=== PATIENT | male | born 1960 | race Caucasian/White ===

== ENCOUNTER 2016-05-12 03:57 | Observation (INO) | payer OTHER ==
[2016-05-12] MEDS ORDERED: NITROGLYCERIN OINT 1 INCH/GM PACKET TOPICAL STA (04:11)
[2016-05-12] MEDS ORDERED: ASPIRIN 81 MG CHEW PO STA (04:11)
--- NOTE | 2016-05-12 04:15 | ED ---
Chest Pain HPI - General Chief Complaint: Chest Pain Stated Complaint: chest pain Time Seen by Provider: 05/12/16 04:05 Source: patient, RN notes reviewed Mode of arrival: ambulatory Limitations: no limitations - History of Present Illness Initial Comments: This is a 55-year-old male with no significant past medical history. Patient states she does have some family history of heart disease. Patient comes in today because he woke up and had some numbness down his left arm and then he get up went to the bathroom he started feeling lightheaded and had some chest heaviness being short of breath and then thought he was going to pass out. Patient went and told his that she should call an ambulance and then he started feeling better so he decided to drive into the emergency department. On the way in he had a repeat of those symptoms and again to a passout and again was telling his called EMS unit on the right in. Patient denies any recent fever chills or cough. Patient denies any headache patient denies numbness weakness. Patient denies any recent injury or trauma. Patient states currently he is only having very minimal heaviness in his chest - Related Data Allergies Allergy/AdvReac Type Severity Reaction Status Date / Time No Known Allergies Allergy Verified 05/12/16 04:27 Review of Systems ROS Statement: Those systems with pertinent positive or pertinent negative responses have been documented in the HPI. ROS Other: All systems not noted in ROS Statement are negative. Past Medical History Additional Past Medical History / Comment(s): menners History of Any Multi-Drug Resistant Organisms: None Reported Additional Past Surgical History / Comment(s): orthopedic surgery Past Psychological History: No Psychological Hx Reported Smoking Status: Former smoker Past Alcohol Use History: Occasional Past Drug Use History: None Reported General Exam - General Exam Comments Initial Comments: GENERAL: Patient is well-developed and well-nourished. Patient is nontoxic and well- hydrated and is in mild distress. ENT: Neck is soft and supple. No significant lymphadenopathy is noted. Oropharynx is clear. Moist mucous membranes. Neck has full range of motion without eliciting any pain. EYES: The sclera were anicteric and conjunctiva were pink and moist. Extraocular movements were intact and pupils were equal round and reactive to light. Eyelids were unremarkable. PULMONARY: Unlabored respirations. Good breath sounds bilaterally. No audible rales rhonchi or wheezing was noted. CARDIOVASCULAR: There is a regular rate and rhythm without any murmurs gallops or rubs. ABDOMEN: Soft and nontender with normal bowel sounds. No palpable organomegaly was noted. There is no palpable pulsatile mass. SKIN: Skin is clear with no lesions or rashes and otherwise unremarkable. NEUROLOGIC: Patient is alert and oriented x3. Cranial nerves II through XII are grossly intact. Motor and sensory are also intact. Normal speech, volume and content. Symmetrical smile. MUSCULOSKELETAL: Normal extremities with adequate strength and full range of motion. No lower extremity swelling or edema. No calf tenderness. LYMPHATICS: No significant lymphadenopathy is noted PSYCHIATRIC: Normal psychiatric evaluation. Normal interpersonal interactions appears functionally intact in deals appropriately with others. No signs of depression. No signs of anxiety. Limitations: no limitations Course Vital Signs 05/12/16 04:00 Temperature 97.2 F L Pulse Rate 88 Respiratory 20 Rate Blood Pressure 168/92 O2 Sat by Pulse 98 Oximetry Chest Pain MDM - MDM EKG shows normal sinus rhythm at 75 bpm NV interval 260 QRS is 90 QT interval 386 QTC is 431. Patient's EKG shows no ST segment elevation or depression or T wave noted. Chest x-ray shows no acute abnormality. Disposition Clinical Impression: Chest pain, Palpitations, Near syncope Disposition: ADMITTED IP TO THIS HOSP Time of Disposition: 05:15
[2016-05-12 04:33] LABS: Basophils % (A) 1 %; CH 30.8; CHCM 33.6; Eosinophils # (A) 0.3 k/uL (0-0.7); Eosinophils % (A) 7 %; HDW 2.15; HGB 15.3 gm/dL (13.0-17.5); Luc # (Auto) 0.22; Luc % (Auto) 4; Lymphocytes # (A) 1.8 k/uL (1.0-4.8); Lymphocytes % (A) 36 %; MCH 29.9 pg (25.0-35.0); MCHC 32.5 g/dL (31.0-37.0); Mean Platelet Volume 8.5; Monocytes # (A) 0.4 k/uL (0-1.0); Monocytes % (A) 8 %; Neutrophils # (A) 2.3 k/uL (1.3-7.7); Neutrophils % (A) 45 %; RBC 5.11 m/uL (4.30-5.90); RDW 12.6 % (11.5-15.5); WBC 5.2 k/uL (3.8-10.6); WBC (Perox) 5.25
--- NOTE | 2016-05-12 04:48 | XR ---
EXAM: XR Chest, 2 Views. CLINICAL HISTORY: Reason: Chest Pain TECHNIQUE: Frontal and lateral views of the chest. COMPARISON: No relevant prior studies available. FINDINGS: Lungs: Unremarkable. No consolidation. Pleural spaces: Unremarkable. No pneumothorax. Heart: Unremarkable. No cardiomegaly. Mediastinum: Unremarkable. Bones: Multilevel degenerative changes throughout. The distal left clavicle is foreshortened, may be related to prior injury or surgery. No acute fracture. Tubes and lines: Several EKG wires and leads overlie the chest. IMPRESSION: No acute findings.
[2016-05-12 04:50] LABS: ALT 48 U/L (21-72); AST 28 U/L (17-59); Alkaline Phosphatase 63 U/L (38-126); Anion Gap 11 mmol/L; Blood Urea Nitrogen 17 mg/dL (9-20); Calcium 9.4 mg/dL (8.4-10.2); Carbon Dioxide 23 mmol/L (22-30); Chloride 108 mmol/L (98-107); Glucose 105 mg/dL (74-99); Magnesium 1.9 mg/dL (1.6-2.3); Non-African American GFR(MDRD) >60 (>60 ml/min/1.73 sqM); Potassium 3.7 mmol/L (3.5-5.1); Sodium 142 mmol/L (137-145); Total Bilirubin 0.7 mg/dL (0.2-1.3)
[2016-05-12 04:54] LABS: Creatine Kinase 193 U/L (55-170)
[2016-05-12 05:06] LABS: Creatine Kinase MB 1.4 ng/mL (0.0-2.4); Troponin I <0.012 ng/mL (0.000-0.034)
[2016-05-12] MEDS ORDERED: NITROGLYCERIN SL TABS 0.4 MG TAB SUBLINGUAL PRN (05:19)
[2016-05-12 06:21] LABS: INR 1.1 (<1.1); Partial Thromboplastin Time 24.8 sec (22.0-30.0); Prothrombin Time 11.4 sec (9.0-12.0)
[2016-05-12] MEDS: NITROGLYCERIN OINT 1 INCH/GM PACKET TOPICAL SCH ×3 (07:24→19:59)
[2016-05-12 10:59] LABS: Creatine Kinase 162 U/L (55-170)
[2016-05-12 11:11] LABS: Troponin I <0.012 ng/mL (0.000-0.034)
--- NOTE | 2016-05-12 12:05 | CONS ---
DATE OF CONSULTATION: Mr. Ariza is a 55-year-old gentleman who is seen for cardiac evaluation. The patient's electronic medical records and laboratories are reviewed. Patient woke up from sleep and he felt that there was a numbness in his left arm. He subsequently tried to get up; had a bowel movement and he felt dizzy and felt like he may pass out. He was slightly diaphoretic. Patient called for the ambulance but subsequently he felt better, so he came by car to the emergency room. On the way to emergency room, he did have another episode of dizziness. He denied any nausea or vomiting. This patient denies any history suggestive of angina. There is no history of diabetes or hypertension. Patient is a former smoker. 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 Review of systems is otherwise unremarkable. Physical examination at present reveals blood pressure 116/76 mmHg. In the emergency room, patient's blood pressure was 168/92 mmHg, heart rate is 80 per minute, oxygen saturation is 97. Head/ENT examination is negative. Neck is supple. There is no increase in jugular venous pressure. Both the carotid pulses are felt. There is no bruit. Chest is symmetrical. HEART: The PMI is not felt. First and second heart sounds are normal. There is no evidence of any murmur. Lungs are clinically clear to auscultation and percussion. ABDOMEN: Soft. Liver and spleen are not enlarged. Bowel sounds are heard. EXTREMITIES: Peripheral pulsations are 2+. There is no evidence of any edema or phlebitis. Neurological examination is grossly normal. EKG shows a normal sinus rhythm without any acute ischemic changes. Two sets of troponins are normal. No dysrhythmias are noted so far. FINAL IMPRESSION: This patient had an episode of dizziness, lightheadedness or symptoms suggestive of near syncope, which appears to be most likely secondary to vasovagal episode. No arrhythmias are noted. EKG is normal. PLAN: We will treat the patient with intravenous fluids. Echo and Doppler study will be done and we will monitor the patient for 24 hours. If the patient remains normal, he can be discharged home and we will schedule him for a stress test as an outpatient.
[2016-05-12] MEDS: SODIUM CHLORIDE 0.9% 1,000 ML IV SCH (13:57)
--- NOTE | 2016-05-12 15:59 | ECHOF ---
Referral Reason:palpitation MEASUREMENTS -------- HEIGHT: 175.3 cm WEIGHT: 99.8 kg BP: 123/71 RVIDd: 2.9 cm (< 3.3) IVSd: 0.9 cm (0.6 - 1.1) LVIDd: 4.6 cm (3.9 - 5.3) LVPWd: 1.1 cm (0.6 - 1.1) IVSs: 2.0 cm LVIDs: 2.8 cm LVPWs: 2.0 cm LA Diam: 3.6 cm (2.7 - 3.8) LAESV Index (A-L): 19.50 ml/m Ao Diam: 3.4 cm (2.0 - 3.7) AV Cusp: 2.0 cm (1.5 - 2.6) LA Diam: 3.6 cm (2.7 - 3.8) MV EXCURSION: 12.842 mm (> 18.000) MV EF SLOPE: 42 mm/s (70 - 150) EPSS: 0.4 cm MV E Jalen: 0.46 m/s MV DecT: 191 ms MV A Ajlen: 0.52 m/s MV E/A Ratio: 0.89 RAP: 5.00 mmHg RVSP: 22.52 mmHg FINDINGS -------- Sinus rhythm. This was a technically good study. There is borderline concentric left ventricular hypertrophy. Overall left ventricular systolic function is normal with, an EF between 55 - 60 %. The right ventricle is normal in size. Normal LA size by volume 22+/-6 ml/m2. The right atrium is normal in size. The aortic valve is trileaflet and appears structurally normal. The mitral valve leaflets are mildly thickened. Mild mitral annular calcification present. Mild mitral regurgitation is present. Mild tricuspid regurgitation present. Right ventricular systolic pressure is normal at < 35 mmHg. Trace/mild (physiologic) pulmonic regurgitation. The aortic root is mildy dilated. Echo free space may represent effusion or a pericardial fat pad. CONCLUSIONS -------- 1. Sinus rhythm. 2. Mild mitral annular calcification present. 3. Mild mitral regurgitation is present. 4. Mild tricuspid regurgitation present. 5. Right ventricular systolic pressure is normal at < 35 mmHg. 6. Trace/mild (physiologic) pulmonic regurgitation. 7. The aortic root is mildy dilated. 8. Echo free space may represent effusion or a pericardial fat pad. 9. This was a technically good study. 10. There is borderline concentric left ventricular hypertrophy. 11. Overall left ventricular systolic function is normal with, an EF between 55 - 60 %. 12. The right ventricle is normal in size. 13. Normal LA size by volume 22+/-6 ml/m2. 14. The right atrium is normal in size. 15. The aortic valve is trileaflet and appears structurally normal. 16. The mitral valve leaflets are mildly thickened. PROFESSIONAL HOUSING CONSULTANT: Brandi Silva RDCS
[2016-05-12 16:17] LABS: Creatine Kinase 229 U/L (55-170)
--- NOTE | 2016-05-12 16:26 | HP ---
DATE OF ADMISSION: 05/12/2016 PRESENTING COMPLAINT: Left arm numbness. HISTORY OF PRESENTING COMPLAINT: This is a pleasant 55-year-old patient of Dr. Mascorro whose chronic stable medical conditions include Meniere's disease, hiatal hernia. Patient woke up this morning with his left arm feeling somewhat numb. He tried it shake it off; it felt as if a cloth was wrapped around it. Patient also noticed his heart to be racing; had an episode where he became pale, dizzy; also left leg became numb. Patient had 2 similar episodes. Denies any chest pain. No change in speech. No change in swallowing. Patient got worried and told his to bring him to the ER. Patient has been dieting for the last 2 weeks; had cut back to one meal and just salad; drinks a lot of coffee. Patient's symptoms have since abated. REVIEW OF SYSTEMS: CONSTITUTIONAL: Tired. HEENT: None. RESPIRATORY: None. CARDIOVASCULAR: As above. GASTROINTESTINAL: None. GENITOURINARY: None. MUSCULOSKELETAL: None. DERMATOLOGIC: None. HEMATOLOGIC: None. LYMPHATICS: None. PSYCHIATRY: None. NEUROLOGICAL: As above. PAST MEDICAL HISTORY: M?ni?re's disease, hiatal hernia. PAST SURGICAL HISTORY: 1. Adenoidectomy. 2. Cardiac catheterization in 1997 that was negative. 3. Hernia repair. 4. Bilateral inguinal hernia repair. 5. Left cataract removal with lens implant. 6. Sinus surgery for DNS. 7. Left rotator cuff repair. 8. Vasectomy. SOCIAL HISTORY: . 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 Smoked for 15 years; stopped in . No alcohol. FAMILY HISTORY: Mother had lung cancer. Family history on mother's side. HOME MEDICATIONS: 1. Triamterene hydrochlorothiazide 37.5/25 one tablet p.o. daily. 2. Centrum Silver Men 1 tablet p.o. daily. ALLERGIES: NONE. PHYSICAL EXAMINATION: VITAL SIGNS ON PRESENTATION: Temperature 97.2, pulse 88, respiration 20, blood pressure 145/78, pulse ox 98% on room air. GENERAL APPEARANCE: Well built; BMI of 33.3. Lying in bed. Not in distress. EYES: Pupils equal. Conjunctivae normal. HEENT: Oral cavity normal. NECK: JVD not raised. Mass not palpable. RESPIRATORY: Effort normal. Lungs are clear. CARDIOVASCULAR: First and second sounds normal. No edema. ABDOMEN: Soft, nontender. Liver and spleen not palpable. LYMPHATIC: No lymph node palpable in neck or axillae. PSYCHIATRY: Alert and oriented x3. Mood and affect normal. NEUROLOGICAL: Pupils equal. Cranial nerves grossly intact. Power and sensation grossly intact. INVESTIGATIONS: White count 5.2, hemoglobin 15.3, potassium 3.7. BUN and creatinine are normal. Troponin x2 negative. EKG shows normal sinus rhythm. ASSESSMENT: 1. This is a patient who presented with episode of left arm, left leg numbness. This could well be TIA; also episodes of palpitations. Patient has been drinking excessive coffee and this could have triggered maybe a paroxysmal SVT which has not been caught as yet. 2. Obesity; body mass index of 33.3. 3. Hiatal hernia. PLAN: Patient was put on aspirin. Will order an MRI of the brain and MRA of the neck, a 2-D echocardiogram. Keep the patient on telemetry. Care was discussed with the patient and his at the bedside. Questions were answered.
[2016-05-12 16:30] LABS: Creatine Kinase MB 1.4 ng/mL (0.0-2.4); Troponin I <0.012 ng/mL (0.000-0.034)
--- NOTE | 2016-05-12 16:56 | MR ---
EXAMINATION TYPE: MR brain wo con DATE OF EXAM: 05/12/2016 4:51 PM COMPARISON: NONE HISTORY: Left-sided numbness TECHNIQUE: Multiplanar, multisequence imaging of the brain and brainstem is performed without IV cont rast. FINDINGS: Diffusion weighted images demonstrate no evidence of a recent infarct or other diffusion abnormality. There is no extraaxial fluid collection or significant white matter signal abnormality. The ventricu lar system and cisternal spaces are normal in size and appearance. The brain volume is age appropria te. Midline structures demonstrate normal morphology. The craniocervical junction appears within normal limits. Normal vascular flow voids are present. There is thinning of left lens seen, consider catarac t. Is mild mucosal thickening of ethmoid sinuses bilaterally, left greater than right. IMPRESSION: No evidence of a recent infarct. No suspicious finding is seen to account for patient's s ymptoms.
[2016-05-12] MEDS: ENOXAPARIN 40 MG/0.4 ML SYRINGE SQ SCH (17:50)
[2016-05-12] MEDS ORDERED: ACETAMINOPHEN TAB 325 MG TAB PO PRN (17:51)
[2016-05-12 19:26] VITALS: RESP 18
--- NOTE | 2016-05-12 20:45 | MR ---
EXAMINATION TYPE: MR angio head wo/neck wo/w con DATE OF EXAM: 05/12/2016 5:20 PM COMPARISON: Same day brain MRI exam. HISTORY: Right-sided hearing loss and dizziness. TECHNIQUE: Time of flight images focusing on the [place] were performed without contrast.. M RA images of the neck are performed without and with IV contrast. 2-D and 3-D postprocessing imaging is performed. FINDINGS: Imaging of the neck shows normal three-vessel origin from aortic arch. The right common car otid artery shows normal origin from the right brachiocephalic artery. There is no significant focal plaque or stenosis in visualized portion of right common or internal carotid arteries including the c arotid bulb. Patent right external carotid artery is seen without significant stenosis. There is no significant focal plaque or stenosis in the left common or internal carotid arteries incl uding at level of left carotid bulb. There is patent left external carotid artery without significant stenosis seen. There is codominant vertebrobasilar system. Vertebral arteries are patent to basilar junction. There are hypoplastic posterior communicating arteries seen bilaterally. There is no significant focal sten osis or aneurysmal change in the posterior circulation. Images of the anterior circulation show no significant focal stenosis or aneurysmal change. Patent an terior communicating artery is present. IMPRESSION: 1. No significant focal stenosis in common or internal carotid arteries bilaterally. 2. No significant focal stenosis or aneurysmal change at level of the [place].
[2016-05-13] MEDS: NITROGLYCERIN OINT 1 INCH/GM PACKET TOPICAL SCH ×3 (00:47→13:54)
[2016-05-13 02:06] LABS: Cholesterol 204 mg/dL (<200); HDL Cholesterol 60 mg/dL (40-60); Triglycerides 79 mg/dL (<150)
[2016-05-13] MEDS: SODIUM CHLORIDE 0.9% 1,000 ML IV SCH ×2 (05:07→13:54)
[2016-05-13] MEDS ORDERED: ASPIRIN 325 MG TAB PO SCH (09:00)
[2016-05-13] MEDS: ENOXAPARIN 40 MG/0.4 ML SYRINGE SQ SCH (09:43)
[2016-05-13 12:09] VITALS: BP 130/64; PULSE 72; TEMP 98.1
--- NOTE | 2016-05-14 08:23 | DS ---
DATE OF ADMISSION: 05/12/2016 DATE OF DISCHARGE: 05/13/2016 FINAL DIAGNOSES: 1. Possible transient ischemic attack. 2. Obesity, body mass index of 33.3. 3. Hiatal hernia. HOSPITAL COURSE: This patient with left arm numbness, left leg numbness. MRI and MRA of the brain and neck were all negative. A 2-D echocardiogram was unremarkable. Symptoms completely resolved. A 2-D echo was negative. Total cholesterol was 204, LDL 128. Patient may have pinched a nerve in the neck or this could be TIA. Care was discussed with the patient and . Patient also has been drinking excessive caffeine. Patient was seen by Dr. Zaid Plummer from cardiology who may do an outpatient stress test. DISCHARGE MEDICATIONS: 1. Triamterene hydrochlorothiazide 37.5/25, 1 tablet p.o. daily. 2. Aspirin 81 mg a day. 3. Lipitor 40 mg a day. Follow with Dr. Mascorro in one week. Follow up with Dr. Zaid Plummer in two weeks. On exam, lungs are clear. Cardiovascular, first and second sounds. No neuro deficits.
== END 2016-05-13 13:46 | disposition home or self-care (01) ==
LOC: EC 03:57 → 3OBS 05:15
PROVIDERS: ADMIT Hospitalist; ATTEND Hospitalist
DX: R20.0 Anesthesia of skin (principal); R42 Dizziness and giddiness; R06.02 Shortness of breath; R07.9 Chest pain, unspecified; E66.9 Obesity, unspecified; Z68.33 Body mass index [BMI] 33.0-33.9, adult; H81.09 Meniere's disease, unspecified ear; K44.9 Diaphragmatic hernia without obstruction or gangrene; Z79.899 Other long term (current) drug therapy; Z87.891 Personal history of nicotine dependence; Z82.49 Family history of ischemic heart disease and other diseases of the circulatory system
CPT/HCPCS: 99285; 36415; 93005; 93306; 80061; 80053; 82550; 82553; 83735; 84484; 85025; 85610; 85730; 71020; 70544; 70549; 70551; G0378 ×2; J1650; A9577